=== PATIENT | male | born 2000 | race Caucasian/White ===

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

== ENCOUNTER 2023-08-02 01:29 | Emergency (ER) | payer MEDICAID ==
[~2023-08-02] VITALS: Ht 175.3 cm; Wt 78.0 kg
[2023-08-02 01:35] VITALS: O2SAT 98
[2023-08-02] MEDS: LEVETIRACETAM 1000MG PREMIX 100 ML IV ONE (03:01)
[2023-08-02 05:26] VITALS: BP 118/59; PULSE 89; RESP 17; TEMP 98.6
== END 2023-08-02 05:34 | disposition home or self-care (01) ==
LOC: ER 01:29
DX: R56.9 Unspecified convulsions (principal)
CPT/HCPCS: 99284; 96365; J1953